=== PATIENT | female | born 1975 | race Caucasian/White ===

== ENCOUNTER 2024-07-30 20:32 | Emergency (ER) | payer SELFPAY ==
[~2024-07-30] VITALS: Ht 160 cm; Wt 55.0 kg
[2024-07-30 20:36] VITALS: O2SAT 100
[2024-07-31] MEDS: MECLIZINE 12.5MG TABLET PO ONE (00:27)
[2024-07-31] MEDS: ACETAMINOPHEN 500MG TABLET PO ONE (00:28)
[2024-07-31] MEDS ORDERED: ACETAMINOPHEN 500MG TABLET PO NR (00:30)
[2024-07-31] MEDS ORDERED: MECLIZINE 12.5MG TABLET PO NR (00:30)
[2024-07-31 01:29] VITALS: BP 137/74; PULSE 69; RESP 16; TEMP 36.6; O2SAT 100
== END 2024-07-31 01:31 | disposition home or self-care (01) ==
LOC: ER 20:32
DX: S09.90XA Unspecified injury of head, initial encounter (principal); R55 Syncope and collapse; W18.39XA Other fall on same level, initial encounter; Y93.89 Activity, other specified; Y92.89 Other specified places as the place of occurrence of the external cause; Y99.8 Other external cause status
CPT/HCPCS: 99284; 70450; J8597